=== PATIENT | male | born 1985 | race Caucasian/White ===

== ENCOUNTER 2018-11-15 14:20 | Emergency (ER) | payer OTHER ==
[~2018-11-15] VITALS: Ht 162.6 cm; Wt 74.8 kg
[2018-11-15 15:09] VITALS: BP 120/72
[2018-11-15] MEDS ORDERED: HYDROcodone-ACET 5/325MG TAB PO ONE (16:00)
[2018-11-15] MEDS ORDERED: TETANUS-DIPTH-ACEL PERTUSSIS 0.5ML SYRG IM ONE (17:00)
[2018-11-15] MEDS ORDERED: LIDOCAINE 1% HCL (LOCAL ANESTH.) INJ 20ML MDV IJ ONE (17:00)
[2018-11-15] MEDS ORDERED: BACITRACIN TOP OINT 1 UD PKG TOP ONE (17:00)
[2018-11-15] MEDS ORDERED: NEOMYCIN-BACITRACIN-POLYM UNITDOSE PKG TOP OINT TOP ONE (17:11)
[2018-11-15] MEDS ORDERED: NEOMYCIN-BACITRACIN-POLYM 15GM TOP OINT TOP SCH (22:00)
== END 2018-11-15 18:11 | disposition home or self-care (01) ==
LOC: ER 14:20
DX: S52.135A Nondisplaced fracture of neck of left radius, initial encounter for closed fracture (principal); S52.591A Other fractures of lower end of right radius, initial encounter for closed fracture; S01.112A Laceration without foreign body of left eyelid and periocular area, initial encounter; W11.XXXA Fall on and from ladder, initial encounter; Y93.89 Activity, other specified; Y99.8 Other external cause status; Y92.89 Other specified places as the place of occurrence of the external cause
CPT/HCPCS: 12011; 29125; 70450; 73080; 73110; 90471; 90715; 99284; J2001